=== PATIENT | female | born 1990 | race Caucasian/White ===

== ENCOUNTER → 2017-03-24 | Outpatient (CLI) | payer BC ==
[~2017-03-24] MED LIST: AMPH20TA2 PO; BIOT1TAB5 PO; ERGO500011 PO; PRENTAB26 PO; [UNRECOGNIZED DRUG - CODE] PO
== END | disposition home or self-care (01) ==
LOC: C.LABPBG 13:27
PROVIDERS: ATTEND Physician Assistant
DX: E03.9 Hypothyroidism, unspecified (principal)

== ENCOUNTER → 2017-04-23 | Outpatient (CLI) | payer BC ==
[~2017-04-23] MED LIST changes: +CEPH500C PO; +CLIN1GEL TOP; +THYR90TA6 PO
== END | disposition home or self-care (01) ==
LOC: C.LAB1850 08:33
PROVIDERS: ATTEND Internal Medicine Endocrinology, Diabetes & Metabolism
DX: E03.9 Hypothyroidism, unspecified (principal)

== ENCOUNTER 2017-04-25 18:59 | Emergency (ER) | payer BC ==
[~2017-04-25] VITALS: Ht 167.6 cm; Wt 122.0 kg
[~2017-04-25 18:59] MED LIST changes: -BIOT1TAB5 PO; -CEPH500C PO; -CLIN1GEL TOP; -ERGO500011 PO; -PRENTAB26 PO; -THYR90TA6 PO
[2017-04-25 19:03] VITALS: TEMP 36.3; Ht 167.6 cm; Wt 122.0 kg
[2017-04-25] MEDS ORDERED: PRENTAB26 PO (19:22)
[2017-04-25] MEDS ORDERED: LIDOCAINE/EPINEPHRINE 1% 20 ML VIAL INFIL STA (19:37)
[2017-04-25] MEDS ORDERED: THYR90TA6 PO (20:02)
[2017-04-25] MEDS ORDERED: CLIN1GEL TOP (20:03)
[2017-04-25] MEDS ORDERED: ERGO500011 PO (20:12)
[2017-04-25] MEDS ORDERED: BIOT1TAB5 PO (20:12)
[2017-04-25] MEDS ORDERED: CEPHALEXIN MONOHYDRATE 250 MG CAP PO STA (20:29)
[2017-04-25] MEDS ORDERED: CEPHALEXIN 500MG HOME PACK 1 EA BTL PO STA (20:29)
[2017-04-25] MEDS ORDERED: CEPH500C PO (20:35)
--- NOTE | 2017-04-25 20:37 | EMERGENCY ROOM VISIT NOTE ---
History First contact with patient: 19:09 Chief Complaint: WOUND INFECTION Stated Complaint: CYST W/ RED STREAK- HIDRADENITIS SUPPURATIVA History of Present Illness The patient is a 27 year old female who presents to the Emergency Room via private vehicle with complaints of "cysts with red streak-hydradenitis suppurativa". The patient also notes that she is 8 weeks . 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 This has been for as long as she remembers. She states that she chronically uses topical clindamycin. She states that last week she was ill with a viral- like illness, which subsided but now notes that 3 cyst develop on her left inner thigh. 2 of which have subsided but one persists and is enlarging. She denies any fevers or chills today or nausea or vomiting. There has been no cramping or vaginal bleeding. She notes this is the largest the cyst has ever been on the leg. Review of Systems A complete 6-point Review of Systems was discussed with the patient, with pertinent positives and negatives listed in the History of Present Illness. All remaining Review of Systems questions can be considered negative unless otherwise specified. Past Medical/Surgical History Hidradenitis suppurativa Family History Heart disease Hypertension Social History Smoking Status: Never Smoker Alcohol Use: occasionally Marital Status: Housing Status: lives with significant other Occupation Status: employed Current/Historical Medications Scheduled Biotin (Biotin), 1,000 MCG PO DAILY Cephalexin Monohydrate (Keflex), 500 MG PO QID Ergocalciferol (Vitamin D 20789 Unit), 50,000 INTER.UNIT PO WK Multivit/Min/Iron/Fol Ac/Pren ( Vitamin), 1 TAB PO DAILY Thyroid (Special Agent In Charge Thyroid 90), 270 MG PO DAILY Scheduled PRN Clindamycin Phosphate (Topical (Cleocin-T), 1 APPLN TOP DAILY PRN for Physical Exam Vital Signs Date Time Temp Pulse Resp B/P (MAP) Pulse Ox O2 Delivery O2 Flow Rate FiO2 04/25/17 20:50 98 16 146/91 99 04/25/17 19:03 36.3 101 18 154/94 97 Room Air Physical Exam VITAL SIGNS - Vital signs and nursing notes were reviewed. Stable. Afebrile. GENERAL -27-year-old female appearing her stated age who is in no acute distress. Communicates well with provider and answers questions appropriately. SKIN - Old healed scars of the left inner leg. Small, 2cm indurated with 1cm papule of the left inner thigh consistent with abscess. Small indurated area under the abscess. No lymphangitic streaking. Medical Decision & Procedures Medications Administered Medications (Trade) Dose Ordered Sig/Veto Route Start Time Stop Time Status Last Admin Dose Admin Cephalexin Monohydrate (Keflex 500MG Home Pack) 1 homepack NOW STAT PO 04/25/17 20:29 04/25/17 20:32 DC 04/25/17 20:46 1 HOMEPACK Cephalexin Monohydrate (Keflex Cap) 500 mg NOW STAT PO 04/25/17 20:29 04/25/17 20:32 DC 04/25/17 20:46 500 MG Medical Decision Patient was seen and evaluated as above. She presents to us today with a small abscess to the left inner thigh. She is 8 months . She is well on exam and nontoxic and has stable vital signs. No evidence of sepsis or concerning infection. Benefits versus risk of draining the abscess was discussed. Region was prepped in the typical sterile fashion with Betadine. Region was anesthetized with 1 mL of 1% buffered lidocaine with epinephrine. An 11 blade was then utilized to create a small incision. A large amount of purulence was expressed with sample taken for culture. The region was then thoroughly expressed, and irrigated with normal saline. The incision was very small, therefore packing was not possible. I will place her upon Keflex. This appears to be the safest antibiotic given her . She is to apply bacitracin dressings to the area. She is also to do warm soaks. She is to return or follow with her family doctor in 2 days for recheck. She was educated upon management, educated upon worrisome symptoms which had questions answered prior to discharge, and was discharged home in good condition. In the evaluation and treatment of this patient the following differential diagnoses were entertained: Sepsis, abscess, cellulitis, among others. Impression Primary Impression: Cellulitis and abscess of left leg Departure Information Dispostion Home / Self-Care Condition GOOD Prescriptions Cephalexin Monohydrate (Keflex) 500 Mg Cap 500 MG PO QID for 9 Days, #36 CAP Prov: Isidoro Arceo PA-C 04/25/17 Referrals [place], Ginny M.D. (PCP) Patient Instructions My [facility] Additional Instructions You were seen in the emergency department for your L thigh abscess and cellulitis. Your culture is pending. You were prescribed Keflex to be taken every 6 hours x 10 days. Remainder was sent to the pharmacy. This is category B. This is an antibiotic. All antibiotics have the potential to cause diarrhea. Stop this medication and contact a medical provider if you were to develop any significant adverse side effects including: wheezing, shortness of breath, passing out, vomiting, or a diffuse rash. Always take antibiotics as directed and COMPLETE the ENTIRE course regardless of the improvement of your symptoms. For pain control you can use the following [id number] medicines - Regular strength (325mg/tab) Tylenol (acetaminophen) 2 tabs every 4-6 hours as needed. Do not exceed 12 tablets in a 24 hour period. Avoid taking more than 3 grams (3000 mg) of Tylenol per day. This includes any other sources of acetaminophen you may take on a regular basis. Warm compresses and bandage to wound Please have this rechecked in 2 days (perhaps Friday morning) Please return with any new/concerning symptoms Follow up with your primary care provider in 2-3 days from today's emergency department visit.
[2017-04-25 20:50] VITALS: BP 146/91; PULSE 98; O2SAT 99
--- NOTE | 2017-04-29 18:10 | Pharmacy Progress Note ---
ED Pharmacist Culture FollowUp Date of Service: Apr 29, 2017. Called patient to follow-up I&D on left thigh abscess/cellulitis. Patient was prescribed keflex at visit and surface wound culture grew rare corynebacterium species, few diptheroids, rare peptostreptococcus species. Patient reports that she is doing well, can still see small incision point, redness/bump gone. Patient to continue keflex. She will be seen by her primary care physician tomorrow, Sunday 04/30. Case discussed with Dr. Haley, no action to be taken at this time.
== END 2017-04-25 20:48 | disposition home or self-care (01) ==
LOC: C.EDB 19:00 → C.EDD 20:48
DX: L03.116 Cellulitis of left lower limb (principal); L02.416 Cutaneous abscess of left lower limb; Z82.49 Family history of ischemic heart disease and other diseases of the circulatory system